=== PATIENT | female | born 1995 | race African-American/Black ===

== ENCOUNTER 2018-03-16 13:57 | Outpatient (CLI) | payer BC ==
--- NOTE | 2018-03-16 16:54 | MRI ---
MRI OF THE LEFT KNEE WITHOUT CONTRAST: INDICATION: Left knee pain; medial joint line tenderness of the left knee with left knee effusion and patellofemo ral disorder. FINDINGS: There is mild trochlear hyperplasia. There is mild lateral subluxation of the patella in relationshi p to the femoral trochlea. The trochlea-tibial tubercle distance measures approximately 1.4 cm. The articular cartilage of the patella appears intact. There is some mild chondrosis involving the late ral femoral trochlea without evidence of a full-thickness defect. There is a small joint effusion and small popliteal cyst. The MCL, ACL, PCL, LCLC, and extensor mechanism is intact. The medial and lateral menisci are intact. Articular cartilage of the femorotibial compartments appears preserved. IMPRESSION: 1. 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 No full-thickness disru ption is evident. 2. Slight lateral subluxation of the patella in relationship to the trochlea. The median patellofem oral ligament and medial patellar retinaculum appear intact. 3. Trochlea-tibial tubercle distance is 1.5 cm. 4. Medial and lateral menisci appear intact. 5. The anterior cruciate ligament, posterior cruciate ligament, medial collateral ligament, LCLC, an d extensor mechanism are intact. POS: [facility]
== END 2018-03-16 13:58 | disposition home or self-care (01) ==
LOC: BICMRI 13:57
PROVIDERS: ATTEND Pediatrics Sports Medicine
DX: M25.562 Pain in left knee (principal); M25.462 Effusion, left knee; M22.2X2 Patellofemoral disorders, left knee

== ENCOUNTER 2022-09-07 19:39 | Emergency (ER) | payer BC ==
[2022-09-07 21:57] LABS: #Basophils 0.1 thou/uL (0.0-0.2); #Lymphocytes 1.9 thou/uL (1.20-3.40); #Monocytes 0.6 thou/uL (0.11-0.59); #Neutrophils 6.3 thou/uL (1.40-6.50); %Basophils 0.7 % (0.0-1.0); %Eosinophils 0.2 % (0.0-10.0); %Monocytes 7.2 % (0.0-10.0); Hemoglobin 13.6 g/dL (12.0-16.0); Mean Corpuscular HGB CONC 33.1 g/dL (32.0-36.0); Mean Corpuscular Hemoglobin 28.8 pg (27.0-31.0); Mean Corpuscular Volume 87.1 fl (78.0-98.0); Mean Platelet Volume 9.1 fL (7.4-10.4); Platelet Count 225 10x3/uL (130-400); Red Blood Cell (RBC) Count 4.72 mill/uL (4.20-5.40); White Blood Cell (WBC) Count 8.9 10x3/uL (4.8-10.8)
[2022-09-07 22:19] LABS: ALT (SGPT) 13 U/L (8-55); AST (SGOT) 21 U/L (5-34); Albumin 4.2 g/dL (3.5-5.0); Alkaline Phosphatase 89 U/L (40-110); Anion Gap 18 mmol/L (10-20); BUN (Urea Nitrogen) 8 mg/dL (7.0-18.7); Bilirubin, Total 0.5 mg/dL (0.2-1.2); Calc. Creatinine Clearance 0 mL/min (70-130); Calcium 9.9 mg/dL (7.8-10.44); Carbon Dioxide 21 mmol/L (22-29); Chloride 107 mmol/L (98-107); Estimated GFR 117; Globulin 3.8 g/dL (2.4-3.5); Glucose 110 mg/dL (70-105); Potassium 3.9 mmol/L (3.5-5.1); Sodium 142 mmol/L (136-145)
== END 2022-09-07 23:06 | disposition home or self-care (01) ==
LOC: ERS 19:39
DX: H61.22 Impacted cerumen, left ear (principal)
CPT/HCPCS: 80053; 85025; 93005; 96360